=== PATIENT | male | born 2005 | race Caucasian/White ===

== ENCOUNTER 2025-02-10 17:16 | Emergency (ER) | payer SELFPAY ==
[2025-02-10 17:23] VITALS: BP 143/83; PULSE 85; RESP 16; TEMP 36.8; O2SAT 97
--- OUTSIDE RECORDS SUMMARY | 2025-02-10 17:24 | XMS_ITS | Encounter Summary ---
Author Organization [facility] Address [address] [place] [id number] Care Team Providers Care Hand Wrapper Operator Name Role Phone Murali Thomas MD Primary Care Provider [phone] Encounter Details Date Type Department Care Team (Late st Contact Info) Description 07/31/2020 Hospital Orders Only [facility] [address] [place] [address] Bimal Guajardo, PT Social History Tobacco Use Types Packs/Day Years Used Date Smoking Tobacco: Never Smokeless Tobacco: Never Alcohol Use Standard Drinks/Week Comments Never 0 (1 standard drink = 0.6 oz pur e alcohol) AUDIT-C Answer Date Recorded Q1: How often do you have a drink containing alc ohol? 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 No / Unsure 08/02/2020 11:03 AM OUTSOLE SKIVER documented as of this encounter Plan of Treatment Not on file documented as of this encounter Visit Diagnoses Not on filedocumented in this encounter Additional Health Concerns Infection Onset Date Last Indicated Resolved Time COVID-19 Rule Out 10/01/2020 10/01/2020 10/02/2020 5:06 PM CDT documented as of this encounter Care Teams Hand Wrapper Operator Relationship Specialty Start Date End Date Murali Thomas MD [address] [place] [phone] PCP - General FAMILY PRACTICE 08/09/20 documented as of this encounter
--- OUTSIDE RECORDS SUMMARY | 2025-02-10 17:24 | XMS_ITS | Clinical Summary ---
Author Organization [facility] Address [address] [place] [id number] Care Team Providers Care Nozzle Operator Name Role Phone Murali Thomas MD Primary Care Provider [phone] Allergies No known active allergies Medications No known medications Active Problems Problem Noted Date Diagnosed Date Closed displaced fracture of shaft of right clavicle, initial encounter 10/01/2020 Sprain of medial collateral ligament of right knee, subsequent encounter 05/15/2020 Sprain of anterior cruciate ligament of right knee, subsequent encounter 05/15/2020 Sprain of posterior cruciate ligament of right knee, subsequent encounter 05/15/2020 Resolved Problems Problem Noted Date Diagnosed Date Resolved Date Follow-up examination after orthopedic surgery 07/11/2020 09/09/2020 Family History Medical History Relation Comments No Known Problems Brother 1 No Known Problems Brother 2 Cancer Father No Known Problems Maternal Grandfather No Known Problems Maternal Grandmother Asthma Mother No Known Problems Paternal Grandfather No Known Problems Paternal Grandmother No Known Problems Sister 1 No Known Problems Sister 2 Relation Status Comments Brother 1 Alive Brother 2 Alive Father Alive Maternal Grandfather Maternal Grandmother Alive Mother Alive Paternal Grandfather Paternal Grandmother Alive Sister 1 Alive Sister 2 Alive Social History Tobacco Use Types Packs/Day Years Used Date Smoking Tobacco: Never Smokeless Tobacco: Never Tobacco Cessation:Counseling Given: Not Answered Alcohol Use Standard Drinks/Week Comments Never 0 [...] on file 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 Gender Identity Not on file Sexual Orientation Not on file Last Filed Vital Signs Vital Sign Reading Time Taken Comments Blood Pressure 109/77 12/04/2022 10:30 PM CDT Pulse 81 12/04/2022 9:19 PM CDT Temperature 36.5 C (97.7 F) 12/04/2022 9:19 PM CDT Respiratory Rate 18 12/04/2022 9:19 PM CDT Oxygen Saturation 100% 12/04/2022 10:30 PM CDT Inhaled Oxygen Concentration - - Weight 77.7 kg (171 lb 3.2 oz) 12/04/2022 9:19 P M CDT Height 175.3 cm (5' 9) 12/04/2022 9:19 PM CDT Body Mass Index 25.28 12/04/2022 9:19 PM CDT Plan of Treatment Health Maintenance Due Date Last Done Comments Annual Physical 2006 DTaP, Tdap and Td Vaccines (6 - Tdap) 2014 02/06/2008, 02/17/2006, 03/10/2004, Additional history exists Meningococcal B Vaccine (1 of 2 - Standard) 2019 Hepatitis C 2021 Hepatitis B Vaccines (1 of 3 - 19+ 3-dose series) 2022 COVID-19 Vaccine ( - 2023- season) 2024 HPV Vaccines Completed 04/17/2020, 01/27/2017 Meningococcal Vaccine Completed 04/17/2020, 017 Pneumococcal Vaccine: Pediatrics (0 to 5 Years) and At-Risk Patients (6 to 49 Years) Aged Out No longer eligible based on patient's age to complete this topic RSV Immunizations Under 20 Months Aged Out No longer eligible based on patient's age to complete this topic Medical Devices Implanted Type Area Truck Rental Clerk Device Identifier Shelf Expiration Date Model / Serial / Lot Implant Tightrope Abs Button Round 11mm Concave [employer] - [id number] Implanted:Qty: 1 on 06/10/2020 by Bk Abdullahi MD at [facility] [place] Right: Knee [employer] [id number] 02/25/2025 AR-1588T B-3 / / [id number] Implant Tightrope Abs Button Round 11mm Concave [employer] - [id number] Implanted:Qty: 1 on 06/10/2020 by Bk Abdullahi MD at [facility] [employer] Right: Knee [employer] [id number] 02/25/2025 AR-1588T B-3 / / [id number] System Fixation 19.1mm 4.75mm Swivelock Biocomposite Secondary - [id number] Implanted:Qty: 1 on 06/10/2020 by Bk Abdullahi MD at [facility] [employer] Right: Knee [employer] [id number] 11/26/2023 AR-1593- BC / / [id number] System Fixation 19.1mm 4.75mm Swivelock Biocomposite Secondary - [id number] Implanted:Qty: 1 on 06/10/2020 by Bk Abdullahi MD at [facility] [employer] Right: Knee [employer] [id number] 11/26/2023 AR-1593- BC / / [id number] Internal Brace Kit Knee - [id number] Implanted:Qty: 1 on 06/10/2020 by Bk Abdullahi MD at [facility] [employer] Right: Knee [employer] [id number] 02/26/2024 AR-5511- CP / / [id number] Acl Fibertag Tightrope Implant Implanted:Qty: 1 on 06/10/2020 by Bk Abdullahi MD at [facility] Right: Knee [employer] [id number] 12/25/2024 AR-1588R TT / / [id number] Acl Fibertag Tightrope Abs Implant Implanted:Qty: 1 on 06/10/2020 by Bk Abdullahi MD at [facility] Right: Knee [employer] 09/25/2024 AR-1588T NT / / [id number] Allograft Graftlink Convenience Pack Implanted:Qty: 1 on 06/10/2020 by Bk Abdullahi MD at [facility] Right: Knee [employer] [id number] 11/25/2024 AR-1588A L-CP / / [id number] Autograft Graftlink Convenience Pack Implanted:Qty: 1 on 06/10/2020 by Bk Abdullahi MD at [facility] Right: Knee [employer] [id number] 09/25/2024 AR-1588A U-CP / / [id number] Jrf Graftlink Xl Implanted:Qty: 1 on 06/10/2020 by kB Abdullahi MD at [facility] Right: Knee [employer] [id number] 02/20/2023 / [id number] / 3.5x 18mm Nl Screw Implanted:Qty: 1 on 10/03/2020 by Bk Abdullahi MD at [facility] Right: Shoulder [id number] / / 3.5x14mm L Screw Implanted:Qty: 3 on 10/03/2020 by Bk Abdullahi MD at [facility] Right: Shoulder [id number] / / 3.5x16mm L Screw Implanted:Qty: 1 on 10/03/2020 by Bk Abdullahi MD at [facility] Right: Shoulder [id number] / / Right 7 Hole Dc Sup Midshaft Implanted:Qty: 1 on 10/03/2020 by Bk Abdullahi MD at [facility] Right: Shoulder [id number] / / 3.5x16 Nl Screw Implanted:Qty: 2 on 10/03/2020 by Bk Abdullahi MD at [facility] Right: Shoulder [id number] / / Explanted Type Area Truck Rental Clerk Device Identifier Shelf Expiration Date Model / Serial / Lot 2.6x135 Mm Drill Bit Explanted:Qty: 2 on 10/03/2020 at [facility] Right: Shoulder [id number] / / T10 Blade Explanted:Qty: 1 on 10/03/2020 at [facility] Right: Shoulder [id number] / / Insurance [facility] AET[employer] Care Teams Nozzle Operator Relationship Specialty Start Date End Date Murali Thomas MD [address] [place] [phone] PCP - General FAMILY PRACTICE 08/09/20
--- OUTSIDE RECORDS SUMMARY | 2025-02-10 17:24 | XMS_ITS | Encounter Summary ---
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 Gender Identity Not on file Sexual Orientation Not on file documented as of this encounter Plan of Treatment Not on file documented as of this encounter Visit Diagnoses Not on filedocumented in this encounter Additional Health Concerns Infection Onset Date Last Indicated Resolved Time COVID-19 Rule Out 06/07/2020 06/07/2020 06/09/2020 12:51 AM SALES EFFECTIVENESS MANAGER COVID-19 Rule Out 10/01/2020 10/01/2020 10/02/2020 5:06 PM CDT documented as of this encounter Care Teams Shutdown Planner Relationship Specialty Start Date End Date Murali Thomas MD [address] [place] [phone] PCP - General FAMILY PRACTICE 08/09/20 documented as of this encounter
--- NOTE | 2025-02-10 17:32 | ED_ITS ---
HPI - Dental/Oral General Chief complaint: Dental/Oral Stated complaint: Toothaches/Headache Time Seen by Provider: 02/10/25 17:22 Source: patient and family (Mother) Mode of arrival: ambulatory Limitations: no limitations History of Present Illness HPI Narrative: 20-year-old male presents to [facility] accompanied by his mother for complaints of pain to his right lower tooth for the past 2 weeks. Patient is s cheduled to see his dentist on March 06. Patient reports he has also had right-sided headaches at times. Patient has been taking [id number] Tylenol with little relief. Patient denies fever, body aches, chills, nausea, vomiting or diarrhea. MD Complaint: tooth pain Location: Tooth # (29) Onset (ago): day(s) (14) Context: history of dental caries Treatment prior to arrival: none Related Data Allergies Allergy/AdvReac Type Severity Reaction Status Date / Time No Known Allergies Allergy Verified 02/10/25 17:20 Review of Systems Constitutional: Constitutional: Denies chills, Denies fatigue, Denies fever(s) and Denies weakness ENT: Denies dizziness, Denies epistaxis, Denies nasal congestion and Denies sore throat Comments: Right lower tooth pain Cardiovascular: Cardiovascular: Denies chest pain Respiratory: Respiratory: Denies cough, Denies dyspnea and Denies wheezing Gastrointestinal: Gastrointestinal: Denies diarrhea, Denies nausea and Denies vomiting Musculoskeletal: Musculoskeletal: Denies myalgias, Denies arthralgias and Denies joint swelling Integumentary/Breasts: Skin/Breast: Denies rash Neurologic: Denies dizziness, Denies syncope and Reports headache(s) PMFSH Comments At time of signature, I agree with nursing past medical, surgical, social and family history. There is no relevant family history pertinent to the presenting complaint. Exam Const: General: healthy appearing and no acute distress Nutritional Appearance: well nourished Orientation/consciousness: patient oriented x3 Limitations: no limitations HENMT: Head: normal to inspection Ears: external ears normal, TM's normal bilaterally and EAC's normal Teeth and gingiva: abnormal tooth and associated gingiva (Chronic dental caries noted; mild erythema and swelling noted to tooth #29.) No obvious abscess noted Throat: posterior oropharynx normal and uvula midline Eyes: Conjunctivae: conjunctivae normal Neck: Neck: normal visual inspection Resp: Effort & Inspection: normal respiratory effort and not labored Auscultation: clear to auscultation bilaterally, no crackles, no rales, no rhonchi and no wheezes Cardio: Rate: regular rate Rhythm: regular rhythm Heart sounds: no murmurs Skin: General skin exam: normal color Rashes: no rashes Wounds: no wounds Neuro: General: patient oriented x3 and moves all extremities Speech: normal speech Gait exam (Neuro): Normal gait present Extrem: General: normal to inspection Psych: Affect: normal affect Attitude: cooperative Course Course Level of Care: Express Care Visit Vital Signs Vital signs: Vital Signs Temperature 36.8 C 02/10/25 17:23 Pulse Rate 85 02/10/25 17:23 Respiratory Rate 16 02/10/25 17:23 Blood Pressure 143/83 H 02/10/25 17:23 Pulse Oximetry 97 02/10/25 17:23 Oxygen Delivery Room Air 02/10/25 17:23 Temperature 36.8 C 02/10/25 17:23 Pulse Rate 85 02/10/25 17:23 Respiratory Rate 16 02/10/25 17:23 Blood Pressure 143/83 H 02/10/25 17:23 Pulse Oximetry 97 02/10/25 17:23 Oxygen Delivery Room Air 02/10/25 17:23 MDM - Dental/Oral MDM Narrative Medical decision making narrative: Instructed patient to keep dental appointment as scheduled next month. Educated patient to alternate Motrin and Tylenol as needed. Educated patient take antibiotic as prescribed. Educated patient to complete warm salt water gargles Differential Diagnosis Differential diagnosis: Likely gingival abscess, toothache and dental abscess Critical Care Time Critical Care Time Critical Care Time: No Discharge Plan Discharge Clinical Impression: Toothache Patient Disposition: Home Condition: Stable Instructions: Antibiotic Form, Toothache (ED) Additional Instructions: Warm saltwater gargles to 3 times per day Alternate Motrin and Tylenol as needed for pain Keep scheduled dentist appointment Take antibiotic as prescribed Proceed to the emergency room symptoms worsen Patient Language: Japanese Prescriptions: New penicillin V potassium 500 mg tablet 500 mg PO TID 10 Days Qty: 30 0RF Follow-up/Referrals: UNKNOWN,DOCTOR [Primary Care Provider] - Stand Alone Forms: Work/School Release IP
== END 2025-02-10 17:41 | disposition home or self-care (01) ==
PROVIDERS: Emergency Provider Nurse Practitioner Family
DX: K08.89 Other specified disorders of teeth and supporting structures (principal)
CPT/HCPCS: 99203; G0463